=== PATIENT | female | born 1965 | race Caucasian/White ===

== ENCOUNTER 2020-04-13 15:09 | Outpatient (REF) | payer OTHER, SELFPAY ==
--- NOTE | 2020-04-13 15:13 | MM_ITS ---
EXAMINATION: MM SCREENING DIGITAL BREAST TOMOSYNTHESIS, BILATERAL CLINICAL INFORMATION: Screening. Asymptomatic. The lifetime risk of breast cancer based on the Tyrer-Cuzick Model is 7%. COMPARISON: Mammography: 04/11/2019, 03/03/2018, 02/25/2017 TECHNIQUE: Digital breast tomosynthesis is performed in both the craniocaudal and mediolateral oblique views along with computer-aided detection (CAD). Synthesized 2D images are generated from the tomosynthesis. FINDINGS: There are scattered areas of fibroglandular density (ACR BI-RADS breast composition Category b). There are no significant masses, abnormal calcifications, or other abnormalities. Right breast has small smooth oval nodule mid to posterior central 3:00 position similar to prior studies. No significant changes. MM/MM tomosynthesis screening BI IMPRESSION: No significant changes from prior exams. ASSESSMENT: BI-RADS 2: Benign RECOMMENDATION: Routine annual mammography screening. This patient's information was entered into a reminder system with a target due date for their next mammogram.
== END 2020-04-13 15:10 | disposition home or self-care (01) ==
LOC: HO.MAMMO 15:09
PROVIDERS: PCP Nurse Practitioner Family; Visit Provider Nurse Practitioner Family
DX: Z12.31 Encounter for screening mammogram for malignant neoplasm of breast (principal)
CPT/HCPCS: 77063; 77067

== ENCOUNTER 2021-04-22 13:19 | Outpatient (REF) | payer OTHER, SELFPAY ==
--- NOTE | ~2021-04-22 | MM_ITS ---
EXAMINATION: MM SCREENING DIGITAL BREAST TOMOSYNTHESIS, BILATERAL CLINICAL INFORMATION: Screening. Asymptomatic. The lifetime risk of breast cancer based on the Tyrer-Cuzick Model is 2.8%. COMPARISON: Mammography: April 13, 2020 and studies dating back to November 14, 2011 TECHNIQUE: Digital breast tomosynthesis is performed in both the craniocaudal and mediolateral oblique views along with computer-aided detection (CAD). Synthesized 2D images are generated from the tomosynthesis. FINDINGS: There are scattered areas of fibroglandular density (ACR BI-RADS breast composition Category b). There are no significant masses, abnormal calcifications, or other abnormalities. MM/MM tomosynthesis screening BI IMPRESSION: There are no significant changes from prior study. ASSESSMENT: BI-RADS 1: Negative RECOMMENDATION: Routine annual mammography screening. This patient's information was entered into a reminder system with a target due date for their next mammogram.
--- NOTE | ~2021-04-22 | MM_ITS ---
EXAMINATION: BONE DENSITOMETRY CLINICAL INDICATION: Estrogen deficiency. COMPARISON: Baseline BD dated 04/16/2019. TECHNIQUE: Using a [id number] DXA System (software version: 13.1) manufactured by [employer], dual-energy x-ray absorptiometry was performed of the lumbar spine and left hip. The images are of good technical quality. Summary results are attached. FINDINGS: AP SPINE L1-L4: Current: BMD 1.094 g/cm2, Z-score 0.5, T-score -0.7, normal, 2.2% decrease from baseline (<5% change is not significant). Baseline: BMD 1.119 g/cm2. LEFT FEMUR, NECK: Current: BMD 0.813 g/cm2, Z-score -0.4, T-score -1.6, osteopenia. Baseline: BMD 0.841 g/cm2. LEFT FEMUR, TOTAL: Current: BMD 0.823 g/cm2, Z-score -0.5, T-score -1.5, osteopenia, 2.7% decrease from baseline (<5% change is not significant). Baseline: BMD 0.846 g/cm2. IDENTIFIED RISK FACTORS: Rheumatoid arthritis, 3 or more alcoholic drinks a day, history of fracture (adult). Early menopause, secondary osteoporosis. HISTORY OF FRACTURE: Spine. MEDICATIONS: Calcium supplements or multivitamin, vitamin D. MM/XR DEXA axial skeleton IMPRESSION: 1. DIAGNOSIS: Osteopenia based on the lowest T-score value of -1.6 in the femoral neck applying World Health Organization criteria. 2. 10-YEAR FRACTURE RISK PREDICTION, FRAX: Major osteoporotic fracture (clinical spine, forearm, hip or shoulder) 9.1%. Hip fracture 1.0%. 3. Treatment Recommendations: NOF guidelines recommend consideration for treatment in postmenopausal women and men age 50 and older presenting with the following: -A hip or vertebral (clinical or morphometric) fracture. -T-score less than or equal to -2.5 at the femoral neck or spine after appropriate evaluation to exclude secondary causes. -Low bone mass at the hip or spine and a 10-year fracture probability by FRAX of greater than or equal to 3% for hip fracture or greater than or equal to 20% for major osteoporotic fracture based on the [place] adapted WHO algorithm. 4. Other Recommendations: All treatment decisions require clinical judgment and consideration of individual patient factors, including patient preferences, comorbidities, previous drug use, risk factors not captured in the FRAX model (e.g. frailty, falls, vitamin D deficiency, increased bone turnover, interval significant decline in bone density) and possible under or overestimation of fracture risk by FRAX. Additional medical evaluation for secondary cause of low bone mineral density may be appropriate. FUTURE SCAN RECOMMENDATION: People with diagnosed cases of osteoporosis or at high risk for fracture should have regular bone mineral density tests. For patients eligible for Medicare, routine testing is allowed once every 2 years. The testing frequency can be increased to one year for patients who have rapidly progressing disease, those who are receiving or discontinuing medical therapy to restore bone mass, or have additional risk factors.
== END 2021-04-22 13:20 | disposition home or self-care (01) ==
LOC: HO.MAMMO 13:19
PROVIDERS: PCP Nurse Practitioner Family; Visit Provider Nurse Practitioner Family
DX: Z12.31 Encounter for screening mammogram for malignant neoplasm of breast (principal); Z13.820 Encounter for screening for osteoporosis; E28.39 Other primary ovarian failure; Z78.0 Asymptomatic menopausal state
CPT/HCPCS: 77063; 77067; 77080

== ENCOUNTER 2022-04-25 13:09 | Outpatient (REF) | payer OTHER, SELFPAY ==
--- NOTE | ~2022-04-25 | MM_ITS ---
EXAMINATION: MM SCREENING DIGITAL BREAST TOMOSYNTHESIS, BILATERAL CLINICAL INFORMATION: Screening. Asymptomatic. The lifetime risk of breast cancer based on the Tyrer-Cuzick Model is 3%. COMPARISON: Mammography: April 22, 2021 and studies dating back to February 06, 2016 TECHNIQUE: Digital breast tomosynthesis is performed in both the craniocaudal and mediolateral oblique views along with computer-aided detection (CAD). Synthesized 2D images are generated from the tomosynthesis. FINDINGS: There are scattered areas of fibroglandular density (ACR BI-RADS breast composition Category b). There are no significant masses, abnormal calcifications, or other abnormalities. MM/MM tomosynthesis screening BI IMPRESSION: No significant changes from prior exam. ASSESSMENT: BI-RADS 1: Negative RECOMMENDATION: Routine annual mammography screening. This patient's information was entered into a reminder system with a target due date for their next mammogram.
== END 2022-04-25 13:10 | disposition home or self-care (01) ==
LOC: HO.MAMMO 13:09
PROVIDERS: PCP Nurse Practitioner Family; Visit Provider Nurse Practitioner Family
DX: Z12.31 Encounter for screening mammogram for malignant neoplasm of breast (principal)
CPT/HCPCS: 77063; 77067

== ENCOUNTER 2023-03-02 13:40 | Outpatient (REF) | payer OTHER, SELFPAY ==
[2023-03-02 14:43] LABS: MANUAL DIFF FLAG NO
[2023-03-02 15:27] LABS: Basophils Absolute Auto 0.1 X10*3/uL (0.0-0.2); Basophils Percent Auto 0.8 % (0-2); Eosinophils Absolute Auto 0.2 X10*3/uL (0.0-0.4); Eosinophils Percent Auto 1.4 % (0-4); Hematocrit 48.1 % (37.0-47.0); Hemoglobin 15.9 g/dl (12.0-16.0); Imm Gran Abs Auto 0.04 X10*3/uL (0.00-0.03); Imm Gran Pct Auto 0.3 % (0.0-0.4); Lymphocytes Absolute Auto 2.9 X10*3/uL (1.2-4.9); Lymphocytes Percent Auto 21.8 % (20-40); Mean Corpuscular HGB Conc 33.1 g/dl (31.0-35.0); Mean Corpuscular Hemoglobin 29.3 pg (27.0-33.0); Mean Corpuscular Volume 88.6 fL (80.0-98.0); Mean Platelet Volume 9.5 fL (9.4-12.3); Monocytes Absolute Auto 1.4 X10*3/uL (0.1-1.2); Monocytes Percent Auto 10.6 % (2-11); Neutrophils Absolute Auto 8.6 x10*3/uL (2.0-8.3); Neutrophils Percent Auto 65.1 % (45-73); Platelet Count 380 X10*3/uL (160-400); Red Blood Count 5.43 X10*6/uL (4.20-5.50); Red Cell Distribution Width 12.6 % (11.0-16.0); White Blood Count 13.2 X10*3/uL (4.8-10.8)
[2023-03-02 16:22] LABS: Alanine Aminotransferase 18 U/L (0-31); Albumin Level 4.4 g/dL (3.5-5.0); Alkaline Phosphatase 81 U/L (39-117); Anion Gap 11 (12-20); Aspartate Amino Transferase 20 U/L (5-31); Bilirubin Total 1.3 mg/dL (0.0-1.0); Blood Urea Nitrogen 16 mg/dL (9-16); Calcium 9.8 mg/dL (8.4-10.2); Carbon Dioxide 28 mmol/L (22-29); Chloride 106 mmol/L (96-108); Estimated Glomerular Filt Rate > 60; Glucose Random 89 mg/dL (60-115); Potassium 4.4 mmol/L (3.3-5.1); Sodium 141 mmol/L (135-145); Total Protein 7.6 g/dL (6.5-8.0)
== END 2023-03-02 13:41 | disposition home or self-care (01) ==
LOC: HO.LAB 13:40
PROVIDERS: PCP Nurse Practitioner Family; Visit Provider Nurse Practitioner
DX: Z01.818 Encounter for other preprocedural examination (principal); L23.89 Allergic contact dermatitis due to other agents; J44.89 Other specified chronic obstructive pulmonary disease; Z88.9 Allergy status to unspecified drugs, medicaments and biological substances
CPT/HCPCS: 36415; 80053; 85025

== ENCOUNTER 2023-03-02 13:40 | Outpatient (AMB) | payer OTHER, SELFPAY ==
--- NOTE | 2023-03-02 13:53 | A.OFFVIS_ITS ---
Intake Vital Signs 3 03/02/23 13:54 Height 5 ft 1 in Weight 123 lb 14.397 oz BMI 23.4 BP 107/70 Blood Pressure Location Lt femoral Position Sitting Pulse 100 Intake Visit Reasons: Colonoscopy Screening / Gerd Intake Note: Patient presents to in office visit today as a new patient for colonoscopy screening. CC: Patient reports GERD and is taking Omeprazole 20 mg BID which she states it helps with symptoms. Patient denies having any other Gi symptoms today. Allergies fentanyl [From DURAGESIC] Allergy (Severe, Verified 03/02/23 13:59) PALPITATIONS,CP valdecoxib [From BEXTRA] Allergy (Severe, Verified 03/02/23 13:59) THROAT CLOSED carisoprodol [From SOMA] Allergy (Intermediate, Verified 03/02/23 13:59) HIGH FEVER oxycodone [From PERCOCET] Allergy (Intermediate, Verified 03/02/23 13:59) HIGH FEVER sertraline [From ZOLOFT] Allergy (Intermediate, Verified 03/02/23 13:59) HIGH FEVER hydrocodone [Vicodin] Allergy (Unknown, Verified 03/02/23 13:59) Unknown lidocaine [Lidoderm] Allergy (Unknown, Verified 03/02/23 13:59) Unknown tramadol [TRAMADOL] Allergy (Unknown, Verified 03/02/23 13:59) UNKNOWN fragances Allergy (Severe, Uncoded 03/02/23 13:59) skin peeling, itching HPI Colonoscopy Screening / Gerd 2 HPI0 Details 57-year-old female here for preprocedura l meeting to discuss a screening colonoscopy. She is referred by Lili Burnett NP a a [facility]. 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 It was navigated into the posterior pharynx. Arytenoid cartilages were clear. Vocal cords were clear. On entering the esophagus, the esophageal mucosa looked normal down to the distal 6 cm. The GE junction itself from the incisors was estimated to be at 34 cm. The distal 6 cm had mild erythema with spotty mucosal abrasion changes and early incomplete esophageal rings. Distal to the junction was a small 2 to 3 cm hiatal hernia. On entering the stomach, there was generalized mild erythema. The duodenal bulb appeared normal. There was patchy erythema in the second duodenum. While in the duodenum, duodenal biopsies were obtained, and the scope was withdrawn back into the stomach. Random gastric biopsies were obtained. ? GENERAL IMPRESSION: 1. Distal esophagitis, grade 2 by PEDRO davis. 2. Small hiatal hernia. 3. Duodenitis. ? Digital rectal exam revealed no specific lesion. The video colonoscope was introduced without difficulty. It was navigated into the rectosigmoid/sigmoid. There was mild redundancy in this area, scattered diverticula were seen throughout. The scope was advanced through transverse, ascending colon into the cecum. The appendiceal orifice was seen. Ileocecal valve was well seen. No mucosal abnormalities were appreciated. The scope was slowly withdrawn. Good mucosal detail was noted, no abnormalities were seen. The anorectal verge was clear. ? GENERAL IMPRESSION: Diverticulosis. ? PLAN: The patient will be seen back in my office in approximately 3 to 6 weeks to review histological findings and outline management plan. 08/22/13 Received: 08/22/13 0 Subm itted by: DELFINA JOHNSON MD 0 MATERIAL RECEIVE D: 0 A. DUODENAL BX'S B. GASTRIC BX'S -- DIAGNOSIS 0 A. UNREMARKABLE D UODENAL MUCOSA. 0 B. UNREMARKABLE G ASTRIC FUNDIC-TYPE MUCOSA. AN IMMUNOHISTOCHEM ICAL STAIN FOR HEL ICOBACTER PYLORI I S NEGATIVE. TODAY'S VISIT She is here with a male relative who is supportive. She had a prior scope in [address] Johnson that was negative. She denies any bowel or upper GI problems. She says her GERD is well controlled on her omeprazole. Her asthma/copd is well controlled and she denies cardiac problems. She has no prior problems with anesthesia or sedation. She has multiple drug allergies. No ID problems. No known FHX of crc or polyps. [facility] Medical History (Updated 03/02/23 @ 14:38 by INDY Vergara) Hx LEEP (loop electrosurgical excision procedure), cervix, Surgical History (Updated 03/02/23 @ 14:38 by INDY Vergara) History of surgery of head History of bunionectomy Social History Alcohol intake: never Patient Tobacco Use Status: Former Tobacco user Review of Systems Const Denies fatigue, Denies fever(s), Denies night sweats, Denies poor appetite and Denies weight loss ENT Reports Normal hearing present, Denies dental pain, Denies dysphagia, Denies hearing loss, Denies mouth pain, Denies odynophagia, Denies throat swelling, Denies tongue swelling and Reports other (Dentition adequate) Card Reports no additional complaints Resp Reports no additional complaints GI Denies abdominal pain, Denies melena, Denies bloating, Denies hematochezia, Denies constipation, Denies GI cramping, Denies dysphagia, Denies excessive flatus, Denies early satiety, Reports heartburn, Denies diarrhea, Denies nausea, Denies odynophagia, Denies vomiting and Denies hematemesis Skin/Breast Denies pruritus, Denies lesions, Denies rash and Denies jaundice Neuro Reports Normal hearing present and Denies Abnormal speech present Endo Denies fatigue Aller/Immun Denies throat swelling and Denies tongue swelling Physical Exam Vital Signs: BMI result Body Mass Index 23.4 Const General: cooperative, no acute distress, well developed and well groomed Nutritional Appearance: average body habitus and well nourished Orientation/consciousness: oriented to person, oriented to place and oriented to time Limitations: No language barrier HEENT Head: Yes normocephalic and Yes atraumatic Eyes General: appearance normal, both eyes and all related structures Pupils: Equal, round and reactive pupils present Neck Neck: Yes normal visual inspection and Yes no lymphadenopathy Thyroid: Thyroid normal Resp Effort & Inspection: normal respiratory effort and able to speak in complete sentences Auscultation: clear to auscultation bilaterally Cardio Rate: regular rate Rhythm: regular rhythm Heart sounds: Normal, physiologic split S2 sound present Peripheral pulses: radial pulses present and posterior tibial pulses present GI Inspection: No distended and No Abdominal panniculus present Palpation (GI): Soft to palpation, nontender, no guarding, not rigid and No hepatosplenomegaly present Percussion: Yes normal to percussion Auscultation: normal bowel sounds Rectal Exam - Female: deferred Abdomen image: 2 1. tattoo Skin General skin exam: no rashes or lesions noted, turgor normal, skin not dry, no jaundice, No spider nevi and no striae Rashes: no rashes Nails: normal Neuro General: oriented to person, oriented to place and oriented to time Cranial nerves: Yes Equal, round and reactive pupils present and Yes Normal hearing present Speech: No Abnormal speech present Extrem General: Yes normal to inspection, No clubbing, No cyanosis and No edema Psych Appearance: grossly normal and well kempt Mental Status: mental status grossly normal Speech and movement: Normal speech and movement present Affect: normal affect Attitude: cooperative Thought process: Normal thought process present and not confabulating Thought content: Normal thought content present Insight: Limited insight present (Psych) Judgement: Limited judgement present (Psych) Assessment & Plan Assessment & Plan (1) Pre-op examination: Code(s): Z01.818 - Encounter for other preprocedural examination Plan: She is here with a male relative who is supportive. She had a prior scope [place] [address] Johnson that was negative. She denies any bowel or upper GI problems. She says her GERD is well controlled on her omeprazole. Her asthma/copd is well controlled and she denies cardiac problems. She has no prior problems with anesthesia or sedation. She has multiple drug allergies. No ID problems. No known FHX of crc or polyps. She requests MiraLax prep due to her multiple allergies. (2) COPD with asthma: Code(s): J44.89 - Other specified chronic obstructive pulmonary disease (3) Multiple drug allergies: Code(s): Z88.9 - Allergy status to unspecified drugs, medicaments and biological substances (4) Allergic contact dermatitis due to fragrance: Code(s): L23.89 - Allergic contact dermatitis due to other agents Orders: Orders 2 Colonoscopy - GI Use Only Today Z01.818 - Encounter for other preprocedural examination Complete Blood Count Auto Diff Today Z81 - Encounter for other preprocedural examination Comprehensive Met. Panel Today Z818 - Encounter for other preprocedural examination Medications: New 2 polyethylene glycol 3350 (Miralax) 238 grams PO ONCE 1 day 238 grams 0RF Coding Level of Care Code New Pt Level 3 (44269) Diagnoses Pre-op examination Z. COPD with asthma J44.89 Multiple drug allergies Z88.9 Allergic contact dermatitis due to fragrance L23.89
[2023-03-02 13:54] VITALS: BP 107/70; PULSE 100; BMI 23.4
== END 2023-03-02 14:41 | disposition home or self-care (01) ==
PROVIDERS: PCP Nurse Practitioner Family; Visit Provider Nurse Practitioner
DX: Z01.818 Encounter for other preprocedural examination (principal); J44.89 Other specified chronic obstructive pulmonary disease; Z88.9 Allergy status to unspecified drugs, medicaments and biological substances; L23.89 Allergic contact dermatitis due to other agents
CPT/HCPCS: 99203

== ENCOUNTER 2023-04-28 12:34 | Outpatient (REF) | payer OTHER, SELFPAY ==
--- NOTE | ~2023-04-28 | MM_ITS ---
EXAMINATION: BONE DENSITOMETRY CLINICAL INDICATION: Menopause. COMPARISON: Previous BD dated 04/22/2021 and baseline BD dated 04/16/2019. TECHNIQUE: Using a Energy DXA System (software version: 13.1) manufactured by [employer], dual-energy x-ray absorptiometry was performed of the lumbar spine and left hip. The images are of good technical quality. Summary results are attached. FINDINGS: LEFT FEMUR, NECK: Current: BMD 0.802 g/cm2, Z-score -0.3, T-score -1.7, osteopenia. Prior: BMD 0.81 g/cm2. Baseline: BMD 0.841 g/cm2. LEFT FEMUR, TOTAL: Current: BMD 0.813 g/cm2, Z-score -0.4, T-score -1.5, osteopenia, 1.2% decrease from previous, 3.9% decrease from baseline (<5% change is not significant). Prior: BMD 0.823 g/cm2. Baseline: BMD 0.846 g/cm2. AP SPINE L1-L4: Current: BMD 1.032 g/cm2, Z-score 0.2, T-score -1.2, osteopenia, 5.7% decrease from previous, 7.8% decrease from baseline (<5% change is not significant). Prior: BMD 1.094 g/cm2. Baseline: BMD 1.119 g/cm2. IDENTIFIED RISK FACTORS: Early menopause, glucocorticoids (chronic), secondary osteoporosis. HISTORY OF FRACTURE: None listed. MEDICATIONS: Calcium or multivitamin. Vitamin D. MM/XR DEXA axial skeleton IMPRESSION: 1. DIAGNOSIS: Osteopenia based on the lowest T-score value of -1.7 in the femoral neck applying World Health Organization criteria. 2. 10-YEAR FRACTURE RISK PREDICTION, FRAX: Major osteoporotic fracture (clinical spine, forearm, hip or shoulder) 12.8%. Hip fracture 1.5%. 3. Treatment Recommendations: NOF guidelines recommend consideration for treatment in postmenopausal women and men age 50 and older presenting with the following: -A hip or vertebral (clinical or morphometric) fracture. -T-score less than or equal to -2.5 at the femoral neck or spine after appropriate evaluation to exclude secondary causes. -Low bone mass at the hip or spine and a 10-year fracture probability by FRAX of greater than or equal to 3% for hip fracture or greater than or equal to 20% for major osteoporotic fracture based on the [place] adapted WHO algorithm. 4. Other Recommendations: All treatment decisions require clinical judgment and consideration of individual patient factors, including patient preferences, comorbidities, previous drug use, risk factors not captured in the FRAX model (e.g. frailty, falls, vitamin D deficiency, increased bone turnover, interval significant decline in bone density) and possible under or overestimation of fracture risk by FRAX. Additional medical evaluation for secondary cause of low bone mineral density may be appropriate. FUTURE SCAN RECOMMENDATION: People with diagnosed cases of osteoporosis or at high risk for fracture should have regular bone mineral density tests. For patients eligible for Medicare, routine testing is allowed once every 2 years. The testing frequency can be increased to one year for patients who have rapidly progressing disease, those who are receiving or discontinuing medical therapy to restore bone mass, or have additional risk factors.
== END 2023-04-28 12:35 | disposition home or self-care (01) ==
LOC: HO.MAMMO 12:34
PROVIDERS: PCP Nurse Practitioner Family; Visit Provider Nurse Practitioner Family
DX: Z12.31 Encounter for screening mammogram for malignant neoplasm of breast (principal); Z13.820 Encounter for screening for osteoporosis; Z78.0 Asymptomatic menopausal state
CPT/HCPCS: 77063; 77067; 77080

== ENCOUNTER → 2023-04-28 13:15 | Outpatient (BNV) | payer OTHER, SELFPAY | PROVIDERS: PCP Nurse Practitioner Family; Visit Provider Radiology Diagnostic Radiology | DX: Z12.31 Encounter for screening mammogram for malignant neoplasm of breast (principal) | CPT/HCPCS: 77063; 77067 ==

== ENCOUNTER 2023-07-20 08:08 | Day surgery (SDC) | payer OTHER, SELFPAY ==
--- NOTE | 2023-07-18 15:28 | P.CONAN_ITS ---
Documented by User: Nanette Aguirre NP 07/18/23 15:29 HPI - Anesthesia Eval Consult details Narrative: 58yo F for Colonoscopy Multiple allergies including fentanyl and lido PMFSH Active Problems Active Problems: All Active Problems (Updated 03/02/23 @ 14:38 by INDY Vergara) Allergic contact dermatitis due to fragrance (Acute) Multiple drug allergies (Acute) Pre-op examination (Acute) GERD (gastroesophageal reflux disease) (Acute) Depression with anxiety (Acute) COPD with asthma (Acute) Past Medical History Medical History GERD (gastroesophageal reflux disease) Depression with anxiety COPD with asthma Hx LEEP (loop electrosurgical excision procedure), cervix, Surgical History Surgical History History of surgery of head History of bunionectomy Social History Social History (Updated 03/02/23 @ 14:05 by Roscoe Arriola [facility]) Alcohol intake: never Patient Tobacco Use Status: Former Tobacco user Are you DNR?: No Advance Directives: No Advance Directives Information Provided: Yes Nutrition Risks: No Nutritional Risk Meds Allergies Allergy/AdvReac Type Severity Reaction Status Date / Time fentanyl [From DURAGESIC] Allergy Severe PALPITATION Verified 07/20/23 08:30 S,CP valdecoxib [From BEXTRA] Allergy Severe THROAT Verified 07/20/23 08:30 CLOSED carisoprodol [From SOMA] Allergy Intermediate HIGH FEVER Verified 07/20/23 08:30 oxycodone [From PERCOCET] Allergy Intermediate HIGH FEVER Verified 07/20/23 08:30 sertraline [From ZOLOFT] Allergy Intermediate HIGH FEVER Verified 07/20/23 08:30 hydrocodone [Vicodin] Allergy Unknown Unknown Verified 07/20/23 08:30 lidocaine [Lidoderm] Allergy Unknown Unknown Verified 07/20/23 08:30 tramadol [TRAMADOL] Allergy Unknown UNKNOWN Verified 07/20/23 08:30 fragances Allergy Severe skin Uncoded 07/20/23 08:30 peeling, itching Home Medications ?Medication ?Instructions ?Recorded ?Confirmed ?Last Taken ?Type diazepam 5 mg tablet 5 mg PO BID PRN Anxiety 03/02/23 07/20/23 Unknown History fluticasone 250 mcg-salmeterol 50 1 inh inhalation BID 03/02/23 07/20/23 07/20/23 History mcg/dose blistr powdr for inhalation (Wixela Inhub) montelukast 10 mg tablet 10 mg PO BEDTIME 03/02/23 07/20/23 Unknown History omeprazole 20 mg capsule,delayed 20 mg PO BID 03/02/23 07/20/23 Unknown History release tiotropium bromide 2.5 2 puff inhalation QDAY 03/02/23 07/20/23 07/20/23 History mcg/actuation mist for inhalation (Spiriva Respimat) Assessment and Plan Assessment Anesthesia Assessment: Chart Reviewed Documented by User: Alok Ferguson MD 07/20/23 09:05 [facility] Past Medical History Medical History GERD (gastroesophageal reflux disease) Depression with anxiety COPD with asthma Hx LEEP (loop electrosurgical excision procedure), cervix, Family History Family history of problems with anesthesia: No Surgical History Surgical History History of surgery of head History of bunionectomy History of Problems with Anesthesia: No Social History Social History (Updated 03/02/23 @ 14:05 by Roscoe Arriola [facility]) Alcohol intake: never Patient Tobacco Use Status: Former Tobacco user Are you DNR?: No Advance Directives: No Advance Directives Information Provided: Yes Nutrition Risks: No Nutritional Risk Meds Allergies Allergy/AdvReac Type Severity Reaction Status Date / Time fentanyl [From DURAGESIC] Allergy Severe PALPITATION Verified 07/20/23 08:30 S,CP valdecoxib [From BEXTRA] Allergy Severe THROAT Verified 07/20/23 08:30 CLOSED carisoprodol [From SOMA] Allergy Intermediate HIGH FEVER Verified 07/20/23 08:30 oxycodone [From PERCOCET] Allergy Intermediate HIGH FEVER Verified 07/20/23 08:30 sertraline [From ZOLOFT] Allergy Intermediate HIGH FEVER Verified 07/20/23 08:30 hydrocodone [Vicodin] Allergy Unknown Unknown Verified 07/20/23 08:30 lidocaine [Lidoderm] Allergy Unknown Unknown Verified 07/20/23 08:30 tramadol [TRAMADOL] Allergy Unknown UNKNOWN Verified 07/20/23 08:30 fragances Allergy Severe skin Uncoded 07/20/23 08:30 peeling, itching Home Medications ?Medication ?Instructions ?Recorded ?Confirmed ?Last Taken ?Type diazepam 5 mg tablet 5 mg PO BID PRN Anxiety 03/02/23 07/20/23 Unknown History fluticasone 250 mcg-salmeterol 50 1 inh inhalation BID 03/02/23 07/20/23 07/20/23 History mcg/dose blistr powdr for inhalation (Wixela Inhub) montelukast 10 mg tablet 10 mg PO BEDTIME 03/02/23 07/20/23 Unknown History omeprazole 20 mg capsule,delayed 20 mg PO BID 03/02/23 07/20/23 Unknown History release tiotropium bromide 2.5 2 puff inhalation QDAY 03/02/23 07/20/23 07/20/23 History mcg/actuation mist for inhalation (Spiriva Respimat) Exam Airway Mallampati Class: I TM Dist: >3cm Neck ROM: Full Loose/Missing/Broken Teeth: No Heart: rrr Lungs: cta Assessment and Plan Assessment Anesthesia Assessment: Anesthesia Plan Discussed Final Anesthetic Review Family History of Problems with Anesthesia: No History of Problems with Anesthesia: No NPO: Yes ASA Class: II Final Preanesthetic Review: No Changes in Pt Med Stat, Meds/Allgs Chart Reviewed, Consent Obtained/Reviewed and Anes Risks/Benef Reviewed Patient Risk: Intermediate Procedure Risk: Intermediate Anesthetic Plan Anesthetic Plan: MAC: Disposition: Standard PACU
[2023-07-20 08:37] VITALS: BMI 23.8
[2023-07-20] MEDS: Lactated Ringers 1,000 ML 100 ML IVCONT (08:44)
[2023-07-20 08:51] VITALS: BP 128/79; PULSE 87; RESP 18; TEMP 36.6; O2SAT 97
--- NOTE | 2023-07-20 08:53 | MHC.SHP ---
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 of head Allergies: Allergies Allergy/AdvReac Type Severity Reaction Status Date / Time fentanyl [From DURAGESIC] Allergy Severe PALPITATION Verified 07/20/23 08:30 S,CP valdecoxib [From BEXTRA] Allergy Severe THROAT Verified 07/20/23 08:30 CLOSED carisoprodol [From SOMA] Allergy Intermediate HIGH FEVER Verified 07/20/23 08:30 oxycodone [From PERCOCET] Allergy Intermediate HIGH FEVER Verified 07/20/23 08:30 sertraline [From ZOLOFT] Allergy Intermediate HIGH FEVER Verified 07/20/23 08:30 hydrocodone [Vicodin] Allergy Unknown Unknown Verified 07/20/23 08:30 lidocaine [Lidoderm] Allergy Unknown Unknown Verified 07/20/23 08:30 tramadol [TRAMADOL] Allergy Unknown UNKNOWN Verified 07/20/23 08:30 fragances Allergy Severe skin Uncoded 07/20/23 08:30 peeling, itching Review of Systems Review of Systems Comment: Ten point ROS negative Exam Exam Comment: Gen appear: No acute distress HEENT: no icterus Chest: No overt resp distress Abd: soft, nontender, nondistended Psych: Stable affect, answering questions appropriately Neuro: A/Ox3 noted to move all extremities spontaneously Ext: no peripheral edema Plan Diagnosis/Plan: Unchanged I have reviewed the history and physical and performed a pertinent physical examination on my patient. No changes have occurred unless specified. No upper GI symptoms today. Patient is scheduled for colonoscopy for screening. Time Spent With Patient Time: Total time managing care of this patient today ____ minutes.
--- NOTE | 2023-07-20 09:43 | P.OP_ITS ---
Operative Note Operative Note Date of Service: 07/20/23 Narrative: Procedure: Colonoscopy Indication: Screening Endoscopist: Zayda Bermudez MD Anesthesia Provider: Letty Cardoso CRNA Anesthesia type: MAC Instrument: Olympus [id number]-[id number] Consent: Indication, risks vs benefits, and alternatives were discussed with the patient who gave written informed consent to proceed. EKG, pulse, pulse oximetry and blood pressure were monitored throughout the procedure. Please see anesthesia flowsheet. Procedure: The patient was brought to the procedure room and placed in the left lateral decubitus position. IV medications were administered by the anesthesia provider in attendance. A digital rectal exam was performed which was normal. A distal attachment cap was affixed to the tip of the scope and the colonoscope was then inserted through the anus and advanced through the colon to the cecum at 75 cm,and terminal ileum. Appendiceal orifice and ileocecal valve were identified. Mucosa was carefully examined under high definition white light as the instrument was slowly withdrawn in a retrograde panoramic fashion. Retroflexion was performed in ascending colon and rectum. The procedure was not difficult. There were no immediate obvious complications. The quality of the prep was BBPS: 2+3+3 = adequate Withdrawal time 10 minutes. Limitations: No limitations. Findings: Mucosa: Erythema, congestion and erosions were noted in distal transverse and descending colon. Some patchy erosions were seen in ascending colon as well. Terminal ileum, sigmoid and rectum appeared endoscopically normal. Cold forceps biopsies were taken from right and left colon for histology. Protruding lesions: * Medium internal hemorrhoids [without] stigmata of recent bleeding. Excavated lesions: * Mild diverticulosis of sigmoid colon. Impression: 1. Abnormal colon mucosa ? colitis (biopsy) 2. Internal hemorrhoids 3. Diverticulosis Recommendations: - Follow path results. - Repeat colonoscopy in 10 years for asymptomatic colorectal ca screening
[2023-07-20 10:08] VITALS: BP 107/72; PULSE 78; RESP 16; TEMP 36.2; O2SAT 94
[2023-07-20 10:23] VITALS: BP 116/77; PULSE 81; RESP 18; TEMP 36.1; O2SAT 94
== END 2023-07-20 11:01 | disposition home or self-care (01) ==
PROVIDERS: PCP Nurse Practitioner Family; Visit Provider Internal Medicine
PROC: 0DJD8ZZ Inspection of Lower Intestinal Tract, Via Natural or Artificial Opening Endoscopic (ICD-10-PCS; CPT 45378; principal; 2023-07-20 09:40)
DX: Z12.11 Encounter for screening for malignant neoplasm of colon (principal); K57.30 Diverticulosis of large intestine without perforation or abscess without bleeding; K64.8 Other hemorrhoids; K52.9 Noninfective gastroenteritis and colitis, unspecified; J44.9 Chronic obstructive pulmonary disease, unspecified; Z88.6 Allergy status to analgesic agent
CPT/HCPCS: 45380; 88305; J2704

== ENCOUNTER → 2023-07-20 08:08 | Outpatient (BNV) | payer OTHER, SELFPAY | PROVIDERS: PCP Nurse Practitioner Family; Visit Provider Internal Medicine | DX: Z12.11 Encounter for screening for malignant neoplasm of colon (principal); K57.30 Diverticulosis of large intestine without perforation or abscess without bleeding; K52.9 Noninfective gastroenteritis and colitis, unspecified; K64.8 Other hemorrhoids | CPT/HCPCS: 45380 ==

== ENCOUNTER 2023-08-03 09:34 | Outpatient (AMB) | payer OTHER, SELFPAY ==
--- NOTE | 2023-08-03 09:38 | A.OFFVIS_ITS ---
Intake Vital Signs 08/03/23 09:39 Height 5 ft 1 in Weight 127 lb 13.89 oz BMI 24.2 BP 136/80 Blood Pressure Location Lt brachial Position Sitting Pulse 66 Intake Visit Reasons: S/p colon Aidan Intake Note: Patient here s/p colonoscopy with Dr. Bermudez on 07-20-23. Reports procedure went well. Patient c/o: stomach pain before and after colonoscopy from bisacodyl med. Developed hematoma on Rt dorsal hand after procedure but now. completely cleared now. 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 Accompanied by: Spouse Allergies fentanyl [From DURAGESIC] Allergy (Severe, Verified 08/03/23 09:44) PALPITATIONS,CP valdecoxib [From BEXTRA] Allergy (Severe, Verified 08/03/23 09:44) THROAT CLOSED carisoprodol [From SOMA] Allergy (Intermediate, Verified 08/03/23 09:44) HIGH FEVER oxycodone [From PERCOCET] Allergy (Intermediate, Verified 08/03/23 09:44) HIGH FEVER sertraline [From ZOLOFT] Allergy (Intermediate, Verified 08/03/23 09:44) HIGH FEVER hydrocodone [Vicodin] Allergy (Unknown, Verified 08/03/23 09:44) Unknown lidocaine [Lidoderm] Allergy (Unknown, Verified 08/03/23 09:44) Unknown tramadol [TRAMADOL] Allergy (Unknown, Verified 08/03/23 09:44) UNKNOWN fragances Allergy (Severe, Uncoded 08/03/23 09:44) skin peeling, itching HPI S/p colon Aidan HPI Details Assessment & Plan (1) Pre-op examination: Code(s): Z01.818 - Encounter for other preprocedural examination Plan: She is here with a male relative who is supportive. She had a prior scope in [address] Johnson that was negative. She denies any bowel or upper GI problems. She says her GERD is well controlled on her omeprazole. Her asthma/copd is well controlled and she denies cardiac problems. She has no prior problems with anesthesia or sedation. She has multiple drug allergies. No ID problems. No known FHX of crc or polyps. She requests MiraLax prep due to her multiple allergies. (2) COPD with asthma: Code(s): J44.89 - Other specified chronic obstructive pulmonary disease (3) Multiple drug allergies: Code(s): Z88.9 - Allergy status to unspecified drugs, medicaments and biological substances (4) Allergic contact dermatitis due to f ragrance: Code(s): L23.89 - Allergic contact dermatitis due to other agents Orders: Orders Colonoscopy - GI U se Only Today Z01.818 - Encounte r for other prepro cedural examinatio n Complete Blood Cou nt Auto Diff Today Z01.818 - Encounte r for other prepro cedural examinatio n Comprehensive Met. Panel Today Z01.818 - Encounte r for other prepro cedural examinatio n Medications: New polyethylene glyco l 3350 (Miralax) 238 grams PO ONCE 1 day 238 grams 0 RF LABS: Laboratory Tests 03/02/23 14:42 WBC 13.2 H Hgb 15.9 Hct 48.1 H MCV 88.6 Plt Count 380 Estimated GFR > 60 Total Bilirubin 1.3 H AST 20 ALT 18 Alkaline Phosphata se 81 COLONOSCOPY 07/20/23 indings: Mucosa: Erythema, congestion and erosions were noted in distal transverse and descending colon. Some patchy erosions were seen in ascending colon as well. Terminal ileum, sigmoid and rectum appeared endoscopically normal. Cold forceps biopsies were taken from right and left colon for histology. Protruding lesions: * Medium internal hemorrhoids [without] stigmata of recent bleeding. Excavated lesions: * Mild diverticulosis of sigmoid colon. Impression: 1. Abnormal colon mucosa ? colitis (biop sy) 2. Internal hemorrhoids 3. Diverticulosis Recommendations: - Follow path results. - Repeat colonoscopy in 10 years for asy mptomatic colorectal ca screening BIOPSY Received: 07/20/23 Diagnosis A. Colon, right, biopsy: Colonic mucosa with focal surface erosion; otherwise within normal limits. B. Colon, left, biopsy: Colonic mucosa with focally denuded surface epithelium and vascular congestion; otherwise within normal limits. Comment: The findings are nonspecific but may represent sequelae from a prior injury/illness. Fully developed features of chronic injury are not present TODAY'S VISIT She became severely ill trying to prep for the colonoscopy from the bisacodyl pills. She continued to be ill for a day or so afterwards but this is cleared up since then. She also developed a hematoma on the IV site there is also clearing up.This lasted fro about 3 days but she is better now w/o diarrhea. She did not have any problems prior to this and no FHX of IBD. So, no bisacodyl for the next prep, as her pain started with this and she has tolerated the PEG in the past. Dr. Bermudez ordered a fecal calprotectin, which she has not yet completed. She will go to the lab today. She has a new PCP Julia Pandey at [facility]. I will see if my staff can update the records to reflect this change. After discussion she decided she does not want to follow-up which I offered just to make sure she continued to be okay. She feels she can call me if she has any worsening symptoms but she feels like she is recovered. She is always welcome to call my office should she change her mind and she has my business card and Dr. Pressley is business card. [facility] Medical History GERD (gastroesophageal reflux disease) Depression with anxiety COPD with asthma Hx LEEP (loop electrosurgical excision procedure), cervix, Surgical History (Updated 08/03/23 @ 12:01 by INDY Vergara) History of surgery of head History of bunionectomy Social History (Updated 03/02/23 @ 14:05 by ANDRES Macdonald) Alcohol intake: never Patient Tobacco Use Status: Former Tobacco user Review of Systems Const Denies fatigue, Denies fever(s), Denies night sweats, Denies poor appetite and Denies weight loss ENT Reports Normal hearing present, Denies dental pain, Denies dysphagia, Denies hearing loss, Denies mouth pain, Denies odynophagia, Denies throat swelling, Denies tongue swelling and Reports other (Dentition adequate) Card Reports no additional complaints Resp Reports no additional complaints GI Details: Reports abdominal pain, Denies melena, Denies bloating, Denies hematochezia, Denies constipation, Denies GI cramping, Denies dysphagia, Denies excessive flatus, Denies early satiety, Denies heartburn, Reports diarrhea, Denies nausea, Denies odynophagia, Denies vomiting and Denies hematemesis Skin/Breast Denies pruritus, Denies lesions, Denies rash and Denies jaundice Neuro Reports Normal hearing present and Denies Abnormal speech present Endo Denies fatigue Aller/Immun Denies throat swelling and Denies tongue swelling Physical Exam Vital Signs: Last Vital Signs Pulse 66 08/03/23 09:39 BP 136/80 08/03/23 09:39 BMI result Body Mass Index 24.2 Const General: cooperative, no acute distress, well developed and well groomed Nutritional Appearance: average body habitus and well nourished Orientation/consciousness: oriented to person, oriented to place and oriented to time Limitations: No language barrier HEENT Head: Yes normocephalic and Yes atraumatic Eyes General: appearance normal, both eyes and all related structures Pupils: Equal, round and reactive pupils present Neck Neck: Yes normal visual inspection and Yes no lymphadenopathy Thyroid: Thyroid normal Resp Effort & Inspection: normal respiratory effort and able to speak in complete sentences Auscultation: clear to auscultation bilaterally Cardio Rate: regular rate Rhythm: regular rhythm Heart sounds: Normal, physiologic split S2 sound present Peripheral pulses: radial pulses present and posterior tibial pulses present GI Inspection: No distended and No Abdominal panniculus present Palpation (GI): Soft to palpation, nontender, no guarding, not rigid and No hepatosplenomegaly present Percussion: Yes normal to percussion Auscultation: normal bowel sounds Rectal Exam - Female: deferred Skin General skin exam: no rashes or lesions noted, turgor normal, skin not dry, no jaundice, No spider nevi and no striae Rashes: no rashes Nails: normal Neuro General: oriented to person, oriented to place and oriented to time Cranial nerves: Yes Equal, round and reactive pupils present and Yes Normal hearing present Speech: No Abnormal speech present Extrem General: Yes normal to inspection, No clubbing, No cyanosis and No edema Psych Appearance: grossly normal and well kempt Mental Status: mental status grossly normal Speech and movement: Normal speech and movement present Affect: normal affect Attitude: cooperative Thought process: Normal thought process present and not confabulating Thought content: Normal thought content present Insight: Fair insight present (Psych) Judgement: Fair judgement present (Psych) Assessment & Plan Assessment & Plan (1) H/O colonoscopy: Comment: 2023= no polyps but she had quite a lot of irritation from acute injury from the bisacodyl repeat in 10 years Code(s): Z98.890 - Other specified postprocedural states (2) Multiple drug allergies: Code(s): Z88.9 - Allergy status to unspecified drugs, medicaments and biological substances Plan She became severely ill trying to prep for the colonoscopy from the bisacodyl pills. She continued to be ill for a day or so afterwards but this is cleared up since then. She also developed a hematoma on the IV site there is also clearing up.This lasted fro about 3 days but she is better now w/o diarrhea. She did not have any problems prior to this and no FHX of IBD. So, no bisacodyl for the next prep, as her pain started with this and she has tolerated the PEG in the past. Dr. Bermudez ordered a fecal calprotectin, which she has not yet completed. She will go to the lab today. She has a new PCP Julia Pandey at [facility]. I will see if my staff can update the records to reflect this change. After discussion she decided she does not want to follow-up which I offered just to make sure she continued to be okay. She feels she can call me if she has any worsening symptoms but she feels like she is recovered. She is always w elcome to call my office should she change her mind and she has my business card and Dr. Pressley is business card. Coding Level of Care Code Est Pt Level 3 (00280) Diagnoses H/O colonoscopy Z98.890 Multiple drug allergies Z88.9
[2023-08-03 09:39] VITALS: BP 136/80; PULSE 66; BMI 24.2
== END 2023-08-03 10:16 | disposition home or self-care (01) ==
PROVIDERS: PCP Nurse Practitioner Family; Visit Provider Nurse Practitioner
DX: Z98.890 Other specified postprocedural states (principal); Z88.9 Allergy status to unspecified drugs, medicaments and biological substances
CPT/HCPCS: 99213

== ENCOUNTER → 2023-08-03 09:34 | Outpatient (BNVA) | payer OTHER, SELFPAY | PROVIDERS: PCP Nurse Practitioner Family; Visit Provider Nurse Practitioner ==

== ENCOUNTER 2023-08-05 09:00 | Outpatient (REF) | payer OTHER, SELFPAY ==
[2023-08-11 23:59] LABS: Calprotectin, Fecal 33 mcg/g
== END 2023-08-05 09:01 | disposition home or self-care (01) ==
LOC: HO.LNP 09:00
PROVIDERS: Visit Provider Internal Medicine
DX: K52.9 Noninfective gastroenteritis and colitis, unspecified (principal)
CPT/HCPCS: 83993

== ENCOUNTER 2024-05-03 12:24 | Outpatient (REF) | payer OTHER, SELFPAY | END 2024-05-03 12:25 | disposition home or self-care (01) | LOC: HO.MAMMO 12:24 | PROVIDERS: PCP Physician Assistant Surgical; Visit Provider Physician Assistant Surgical | DX: Z12.31 Encounter for screening mammogram for malignant neoplasm of breast (principal) | CPT/HCPCS: 77063; 77067 ==